=== PATIENT | male | born 1995 | race Two or more races ===

== ENCOUNTER 2024-10-11 16:28 | Emergency (ER) | payer MEDICAID, SELFPAY ==
[2024-10-11 16:36] VITALS: PULSE 101; O2SAT 96; BMI 33.2
[2024-10-11 16:39] VITALS: BP 135/77; PULSE 97; RESP 19; TEMP 37; O2SAT 100
--- NOTE | 2024-10-11 16:58 | PD.EDRME ---
Rapid Medical Screening Exam RME Arrival date/time: 10/11/24 16:28 This is a 29-year-old male who presents to the emergency department history of schizophrenia drug-induced, reports medications not working hearing demonic voices which make him very angry. Requesting to speak to crisis. I have greeted and performed a focused initial assessment of this patient. Initial appropriate labs ordered at this time. A comprehensive ED assessment and evaluation of the patient and analysis of all test and completion of medical decision making process will be conducted by additional ED provider. Chief Complaint: Psychiatric Symptoms Time Seen by Provider: 10/11/24 16:48 Vital signs: Vital Signs Temperature 98.6 F 10/11/24 16:39 Pulse Rate 97 10/11/24 16:39 Respiratory Rate 19 10/11/24 16:39 Blood Pressure 135/77 H 10/11/24 16:39 Pulse Oximetry (%) 100 10/11/24 16:39 Oxygen Delivery Method Room Air 10/11/24 16:39
[2024-10-11 18:29] LABS: Alcohol, Blood Medical < 3.0 mg/dL (0-10.0)
[2024-10-11 18:57] LABS: Amphetamine/Methamp Scrn,U Positive (Negative); Barbiturate Screen,Urine Negative (Negative); Benzodiazepines Screen,Urine Negative (Negative); Benzoylecgonine Screen, Ur Negative (Negative); Fentanyl Screen,Urine Negative (Negative); Opiate Screen,Urine Negative (Negative); THC Screen,Urine Negative (Negative)
== END 2024-10-11 20:25 | disposition left against medical advice (07) ==
PROVIDERS: Nurse Practitioner Primary Care; Emergency Provider Emergency Medicine; PCP Family Medicine
DX: F20.9 Schizophrenia, unspecified (principal); Z53.29 Procedure and treatment not carried out because of patient's decision for other reasons
CPT/HCPCS: 36415; 80307; 80320; 99281; G0480

== ENCOUNTER 2024-10-12 18:28 | Emergency (ER) | payer MEDICAID, SELFPAY ==
[2024-10-12 18:29] VITALS: PULSE 89
[2024-10-12 19:00] VITALS: BP 149/89; PULSE 89; RESP 18; TEMP 36.9; O2SAT 98
[2024-10-12 19:01] VITALS: BMI 30.6
--- NOTE | 2024-10-12 19:22 | XR_ITS ---
Examination: Ribs, right, with PA chest, 5 views Technique: Chest PA, RIBS AP, RPO, LPO, AP coned lower ribs 5 views Exam date and time: October 12, 2024 1931 hrs. Indications: Injury to the right chest today right rib pain Findings: Normal heart size No pneumothorax No pulmonary contusion No acute right rib fractures Impression: No pneumothorax pulmonary contusion or hemothorax No acute right rib fractures
--- NOTE | 2024-10-12 19:30 | PD.EDCHEST ---
ED Chest Pain RME/HPI General Chief Complaint: General Adult/Misc Complain Stated Complaint: RIGHT RIB CAGE PAIN/TALKING TO VOICES Time Seen by Provider: 10/12/24 19:22 Arrival date/time: 10/12/24 18:28 29M with history of psych presents to ED with R rib cage pain w/o known fall/trauma. Patient denies SOB, ab pain, and N/V. Related Data Home Medications ?Medication ?Instructions ?Recorded ?Confirmed buspirone 5 mg tablet 5 mg PO BID 06/30/24 06/30/24 Allergies Allergy/AdvReac Type Severity Reaction Status Date / Time No Known Allergies Allergy Verified 10/12/24 18:32 Review of Systems Review of Systems Systems Reviewed: All systems reviewed, normal except as documented Constitutional Constitutional: Reports system reviewed and no additional complaints, except as documented, Denies fever(s) and Denies headache(s) ENT Ears, Nose, Mouth, and Throat: Denies disequilibrium and Denies headache(s) Cardiovascular Cardiovascular: Reports system reviewed and no additional complaints, except as documented, Reports as per HPI, Reports chest pain (R rib) and Denies dyspnea Respiratory Respiratory: Reports system reviewed and no additional complaints, except as documented, Denies cough and Denies dyspnea Gastrointestinal Gastrointestinal: Reports system reviewed and no additional complaints, except as documented, Denies abdominal pain, Denies nausea and Denies vomiting Neurologic Neurologic: Reports system reviewed and no additional complaints, except as documented, Denies confusion, Denies disequilibrium and Denies headache(s) Psychiatric Psychiatric: Denies confusion Course Quality Measures none Orders Category Date Time Status XR ribs RT min 3V w CXR1V Stat Exams 10/12/24 19:22 Completed Vital Signs Vital signs: Vital Signs Temperature 98.5 F 10/12/24 19:00 Pulse Rate 89 10/12/24 19:00 Respiratory Rate 18 10/12/24 19:00 Blood Pressure 149/89 H 10/12/24 19:00 Pulse Oximetry (%) 98 10/12/24 19:00 Oxygen Delivery Method Room Air 10/12/24 19:00 O2 at 98% on RA and WNLs Chest Pain MDM Narrative MDM Narrative:: 29M with history of psych presents to ED with R rib cage pain w/o known fall/trauma. Patient denies SOB, ab pain, and N/V. Physical exam reveals mild R rib cage tenderness. No ab tenderness. Clear lungs. Patient is afebrile, calm, and talking to himself and listening to his voices. However, patient is redirectable and can communicate and understand conversation. XR normal. Likely MSK in nature. Patient states it does feel sore. Patient data External records reviewed:: [facility] previous records Clinical information provided by:: patient Social determinants that could affect healthcare access:: mental health Patient has the following chronic illnesses:: psych How is presenting disease/condition affected by chronic disease/condition?: exacerbated by Evaluation data The following diagnostics were reviewed and interpreted by me:: radiology exam(s) Lab and/or radiology exams considered but not ordered:: ordered Interpretation Summary: above Medications / Prescriptions Medications or Prescriptions considered but not ordered:: not ordered Medication administrations:: n/a Consultations Consultation(s) initiated? (list below): No Diagnosis Chest Pain Differential Diagnosis: fracture of rib, pneumothorax, stable angina, unstable angina pectoris, atypical chest pain, st elevation myocardial infarction, costochondritis, chest pain and biliary colic Most likely diagnosis given after review of the tests above:: rib pain Admission Indicated Admission indicated?: not indicated Admission Request Was there a request for admission?: No Disposition Plan Disposition Plan: Discharge Discharge Attestation Discharge Attestation: The patient and all family members were given an opportunity to ask questions and understood the discharge instructions. Discharge instructions specifically effects, indications for sooner follow up or return to the emergency department, and the expected course of current diagnosis. Patient condition: Stable Discharge Plan Plan Patient Disposition: HOME (Self Care) Disposition Comment: Stable Prescriptions/Referrals Prescriptions/Med Rec: No Action buspirone 5 mg tablet 5 mg PO BID Patient Comments: TAKE 1 TABLET BY MOUTH TWICE A DAY Referrals: No Primary/Family,Physician [Primary Care Provider] - In 1 week Problem List Clinical Impression: Rib pain Patient/Caregiver Discharge Instructions Additional Instructions: Please follow-up with PCP within 24-48 hours and return immediately if symptoms worsen. If problem persists, recommend outpatient PT and/or MRI follow-up. In the meantime, rest, use ice/heat, and/or compression. Print Language: Spanish Stand Alone Forms: Patient Portal Info Letter ROSA/SOHEILA Supervising Physician MARIA EUGENIA Supervising Physician: Dr. Palacios
== END 2024-10-12 20:15 | disposition home or self-care (01) ==
PROVIDERS: Emergency Provider Emergency Medicine
CPT/HCPCS: 71101; 99283

== ENCOUNTER 2024-10-24 15:18 | Emergency (ER) | payer MEDICAID, SELFPAY ==
[2024-10-24 15:35] VITALS: BP 143/85; PULSE 100; RESP 19; TEMP 36.7; O2SAT 99; BMI 29.2
--- NOTE | 2024-10-24 15:42 | PD.EDSKIN ---
ED Skin Abcess FB-RME/HPI General Chief complaint: Skin/Abscess/Foreign Body Stated complaint: Abscess to buttocks X 1 year Time Seen by Provider: 10/24/24 15:21 Arrival date/time: 10/24/24 15:18 29-year-old male with schizophrenia and homelessness presents to the emerged department for complaints of left buttock pain patient also reports scalp infection patient report symptoms ongoing for more than 1 year Limitations: no limitations Related Data Home Medications ?Medication ?Instructions ?Recorded ?Confirmed buspirone 5 mg tablet 5 mg PO BID 06/30/24 06/30/24 Previous Rx's ?Medication ?Instructions ?Recorded ibuprofen 800 mg tablet 800 mg PO TID PRN pain #30 tabs 10/24/24 sulfamethoxazole 800 1 tab PO BID 14 days #28 tabs 10/24/24 mg-trimethoprim 160 mg tablet (Bactrim DS) Allergies Allergy/AdvReac Type Severity Reaction Status Date / Time No Known Allergies Allergy Verified 10/12/24 18:32 Review of Systems Review of Systems Systems Reviewed: All systems reviewed, normal except as documented Constitutional Constitutional: Reports system reviewed and no additional complaints, except as documented, Denies fever(s) and Denies headache(s) Eyes Eyes: Reports system reviewed and no additional complaints, except as documented and Denies blurry vision ENT Ears, Nose, Mouth, and Throat: Reports system reviewed and no additional complaints, except as documented, Denies headache(s), Denies nasal congestion and Denies nasal discharge Cardiovascular Cardiovascular: Reports system reviewed and no additional complaints, except as documented, Denies chest pain and Denies dyspnea Respiratory Respiratory: Reports system reviewed and no additional complaints, except as documented, Denies chest congestion, Denies cough and Denies dyspnea Gastrointestinal Gastrointestinal: Reports system reviewed and no additional complaints, except as documented and Denies abdominal pain Integumentary/Breasts Skin/Breast: Reports system reviewed and no additional complaints, except as documented and Denies rash Neurologic Neurologic: Reports system reviewed and no additional complaints, except as documented, Reports as per HPI and Denies headache(s) Past Medical History Past Medical History CARDIAC: Negative Congestive Heart Failure RESPIRATORY: Negative Chronic Obstructive Pulmonary Disease (COPD) GASTROINTESTINAL: Positive Gall Bladder Disease GENITOURINARY: Negative Renal Disease ENDOCRINE: Negative Diabetes Mellitus Type 1 or Diabetes Mellitus Type 2 Social History SMOKING STATUS: Current every day smoker SUBSTANCE USE: methamphetamine ED Exam General Limitations: Present no limitations General appearance: Present alert and in no apparent distress Head Head exam: Present atraumatic, normocephalic and normal inspection Eye Eye exam: Present normal appearance, PERRL and EOMI; Absent conjunctival injection ENT ENT exam: Present normal exam, normal oropharynx and mucous membranes moist Neck Neck exam: Present normal inspection, full ROM and trachea midline Chest Chest inspection: Present normal inspection and symmetric chest wall rise Respiratory Respiratory exam: Present normal lung sounds bilaterally; Absent respiratory distress Cardiovascular Cardiovascular exam: Present regular rate, normal rhythm and normal heart sounds Abdominal Exam Abdominal exam: Present soft and normal bowel sounds Extremities Exam Extremities exam: Present normal inspection and full ROM Back Exam Back exam: Present normal inspection and full ROM Neurological Exam Neurological exam: Present alert, oriented X3 and CN II-XII intact Psychiatric Psychiatric exam: Present normal affect and normal mood Skin Skin exam: Present warm, dry and other (Scalp infection) Course Quality Measures none Orders Category Date Time Status Clindamycin Vial [Cleocin vial] Med 10/24/24 15:42 Discontinued 600 mg IM X1 ONE Vital Signs Vital signs: Vital Signs Temperature 98.0 F 10/24/24 15:35 Pulse Rate 100 10/24/24 15:35 Respiratory Rate 19 10/24/24 15:35 Blood Pressure 143/85 H 10/24/24 15:35 Pulse Oximetry (%) 99 10/24/24 15:35 Oxygen Delivery Method Room Air 10/24/24 15:35 O2 saturation 99% room air within normal limits Skin / Abscess / Foreign Body MDM Narrative MDM Narrative:: 29-year-old male with schizophrenia and homelessness presents to the emerged department for complaints of left buttock pain patient also reports scalp infection patient report symptoms ongoing for more than 1 year On exam patient does not appear ill or toxic in no acute distress On exam patient has what appears to be a MRSA like infection to the scalp Patient given clindamycin here discharged home with antibiotics Patient discharged home in no distress to follow-up with primary care doctor in the next 24 to 48 hours and for any worsening symptoms to return to the ER immediately Patient data External records reviewed:: [facility] previous records Clinical information provided by:: patient Social determinants that could affect healthcare access:: mental health Patient has the following chronic illnesses:: Mental health How is presenting disease/condition affected by chronic disease/condition?: exacerbated by Evaluation data The following diagnostics were reviewed and interpreted by me:: other (specify) (N/A) Lab and/or radiology exams considered but not ordered:: Consider not ordered Interpretation Summary: N/A Medications / Prescriptions Medications or Prescriptions considered but not ordered:: Given Medication administrations:: Medication Administration History Discontinued Medications Clindamycin Phosphate (Clindamycin Phos Inj 150 Mg/Ml Vial 6 Ml) 600 mg IM X1 ONE Stop: 10/24/24 15:43 Last Admin: 10/24/24 16:17 Dose: 600 mg Documented By: KF Given Consultations Consultation(s) initiated? (list below): No Diagnosis Skin/Abscess Differential Diagnosis: abscess of skin or subcutaneous tissue, urticaria and cellulitis Most likely diagnosis given after review of the tests above:: Skin infection Admission Indicated Admission indicated?: not indicated Admission Request Was there a request for admission?: No Disposition Plan Disposition Plan: Discharge Discharge Attestation Discharge Attestation: The patient and all family members were given an opportunity to ask questions and understood the discharge instructions. Discharge instructions specifically effects, indications for sooner follow up or return to the emergency department, and the expected course of current diagnosis. Patient condition: Stable Discharge Plan Plan Patient Disposition: HOME (Self Care) Disposition Comment: Stable Prescriptions/Referrals Prescriptions/Med Rec: New ibuprofen 800 mg tablet 800 mg PO TID PRN (Reason: pain) Qty: 30 0RF sulfamethoxazole-trimethoprim [Bactrim DS] 800-160 mg tablet 1 tab PO BID 14 Days Qty: 28 0RF No Action buspirone 5 mg tablet 5 mg PO BID Patient Comments: TAKE 1 TABLET BY MOUTH TWICE A DAY Problem List Clinical Impression: Infection of scalp, Homeless Patient/Caregiver Discharge Instructions Education Materials: ED Wound Check (Infection) Additional Instructions: Please follow up with your primary care doctor in the next 24-48hrs for any worsening symptoms return here immediately Print Language: Upper Sorbian Stand Alone Forms: [place] [facility] Info., Patient Portal Info Letter PA/SOHEILA Supervising Physician ROSA/SOHEILA Supervising Physician: Dr Domingo
[2024-10-24] MEDS: CLINDAMYCIN PHOS INJ 150 MG/ML VIAL 6 ML 600 MG IM (16:17)
== END 2024-10-24 16:22 | disposition home or self-care (01) ==
LOC: SERX 16:35
PROVIDERS: Emergency Provider Nurse Practitioner Primary Care
DX: L08.9 Local infection of the skin and subcutaneous tissue, unspecified (principal); Z59.00 Homelessness unspecified
CPT/HCPCS: 96372; 99283; J0736

== ENCOUNTER 2024-11-18 09:22 | Emergency (ER) | payer MEDICAID, SELFPAY ==
[2024-11-18 09:44] VITALS: PULSE 102; RESP 16; O2SAT 99
[2024-11-18 09:50] VITALS: BMI 30.4
--- NOTE | 2024-11-18 10:00 | PD.EDPSYCH ---
ED Psych RME/HPI General Chief Complaint: Psychiatric Symptoms Stated Complaint: MEDICAL CLEARANCE Time Seen by Provider: 11/18/24 09:44 Arrival date/time: 11/18/24 09:22 RME / HPI RME / HPI Narrative: 29-year-old male brought in by holding on a 5150 for gravely disabled. Patient has no complaints, he is requesting a sandwich. He denies SI/HI. PD records: Patient was picked up for public intoxication/alcohol intoxication on 11/16/2024. Related Data Home Medications ?Medication ?Instructions ?Recorded ?Confirmed buspirone 5 mg tablet 5 mg PO BID 06/30/24 06/30/24 Previous Rx's ?Medication ?Instructions ?Recorded ibuprofen 800 mg tablet 800 mg PO TID PRN pain #30 tabs 10/24/24 Allergies Allergy/AdvReac Type Severity Reaction Status Date / Time No Known Allergies Allergy Verified 10/12/24 18:32 Course Quality Measures none Orders Category Date Time Status Diet Regular Diet 11/18/24 Lunch Active Acetaminophen Stat Lab 11/18/24 10:20 Completed Alcohol, Urine Stat Lab 11/18/24 10:00 Completed CBC Stat Lab 11/18/24 10:20 Completed CMP [Comprehensive Metabolic Panel] Stat Lab 11/18/24 10:20 Completed CMP [Comprehensive Metabolic Panel] Stat Lab 11/18/24 13:53 Completed Drug Screen,Urine Stat Lab 11/18/24 10:00 Completed Salicylate Stat Lab 11/18/24 10:20 Completed Reevaluation(s) Reevaluation #1: Patient has improving liver functions, suspect heavy alcohol consumption when he was picked up for public intoxication, AST ALT ratio is consistent with alcohol/toxin. Tylenol and alcohol levels are negative. However at this point if there was heavy alcohol injection 2 days ago it would be undetectable. he is medically cleared for psychiatric assessment and final disposition. Time: 15:00 Vital Signs Vital signs: Vital Signs Temperature 98.1 F 11/18/24 10:05 Pulse Rate 90 11/18/24 10:05 Respiratory Rate 18 11/18/24 10:05 Blood Pressure 136/91 H 11/18/24 10:05 Pulse Oximetry (%) 100 11/18/24 10:05 Oxygen Delivery Method Room Air 11/18/24 10:05 SpO2 100% on room air, not Psych MDM Narrative MDM Narrative:: Mr. Lopez was picked up for public intoxication approximately 2 days ago it is now he Emergency Department for gravely disabled 5150 placement. Laboratory testing was significant for mildly elevated liver enzymes with AST ALT ratio consistent with alcohol consumption. However it has been 2 days since he was arrested and at this point alcohol or Tylenol would not be detectable. As a result liver enzymes were trended here shows downtrending where at this point no further intervention or testing such as ultrasound and radiography is indicated. Patient data External records reviewed:: [facility] previous records Clinical information provided by:: patient Social determinants that could affect healthcare access:: substance use Patient has the following chronic illnesses:: None How is presenting disease/condition affected by chronic disease/condition?: no chronic disease Evaluation data The following diagnostics were reviewed and interpreted by me:: lab results Lab and/or radiology exams considered but not ordered:: As per narrative Interpretation Summary: As per narrative Medications / Prescriptions Medications or Prescriptions considered but not ordered:: None Medication administrations:: None Consultations Consultation(s) initiated? (list below): No Diagnosis Psych Differential Diagnosis: acute psychosis, chronic schizophrenia, suicidal ideation and drug-induced psychotic disorder Most likely diagnosis given after review of the tests above:: Psychosis Admission Indicated Admission indicated?: not indicated Explain why admission is indicated or not indicated:: Signed out to oncoming provider, Dr. Ramey, pending crisis team assessment and final disposition Admission Request Was there a request for admission?: No Disposition Plan Disposition Plan: other (specify) (Signed out to oncoming provider in stable condition) Discharge Plan Prescriptions/Referrals Prescriptions/Med Rec: No Action buspirone 5 mg tablet 5 mg PO BID Patient Comments: TAKE 1 TABLET BY MOUTH TWICE A DAY ibuprofen 800 mg tablet 800 mg PO TID PRN (Reason: pain) Qty: 30 0RF Referrals: No Primary/Family,Physician [Primary Care Provider] - In 1 week Problem List Clinical Impression: Acute psychosis Patient/Caregiver Discharge Instructions Education Materials: ED Psychosis Print Language: Portuguese
[2024-11-18 10:05] VITALS: BP 136/91; PULSE 90; RESP 18; TEMP 36.7; O2SAT 100
--- NOTE | 2024-11-18 10:06 | PC.NURSE ---
Assume care for this 29 year old male who was BIB EMS for the care home and was placed on a 5150 hold for danger to self and gravely disable. Pt in room, talking to self using word salad, that man is opening the light. Pt is unkept and disheveled, Pt is a GCS of 15 A&O X 4. Pt denied any SI/HI. 1 on 1 sitter in placed.
[2024-11-18 10:34] LABS: Basophils # (Auto) 0.1 Thou/mm3 (0.0-0.2); Basophils % (Auto) 1 % (0-2.5); Eosinophils % (Auto) 0 % (0-10); Hematocrit 39.7 % (41.0-53.0); Immature Granulocytes % (Auto) 0 % (0-0); Immature Granulocytes Auto 0.04 Thou/mm3 (0.00-0.00); Lymphocytes # (Auto) 2.2 Thou/mm3 (1.0-4.8); Lymphocytes % (Auto) 24 % (10-50); Mean Corpuscular HGB Conc 35.3 g/dl (31.0-37.0); Mean Corpuscular Hemoglobin 28.1 pg (25.0-35.0); Mean Corpuscular Volume 80 fL (80-100); Monocytes % (Auto) 11 % (0-12); Neutrophils # (Auto) 5.9 Thou/mm3 (1.8-7.7); Neutrophils % (Auto) 64 % (37-80); Nucleated Red Blood Cell % 0 /100 WBC (0); Platelet Count 254 Thou/mm3 (140-440); RDW Standard Deviation 36.6 fL (35.1-43.9); Red Blood Count 4.98 Miln/mm3 (4.50-5.90); White Blood Count 9.3 Thou/mm3 (3.8-10.6)
[2024-11-18 10:48] LABS: Alcohol, Urine Negative (Negative); Amphetamine/Methamp Scrn,U Positive (Negative); Barbiturate Screen,Urine Negative (Negative); Benzodiazepines Screen,Urine Negative (Negative); Benzoylecgonine Screen, Ur Negative (Negative); Fentanyl Screen,Urine Negative (Negative); Opiate Screen,Urine Negative (Negative); THC Screen,Urine Negative (Negative)
[2024-11-18 11:01] LABS: Acetaminophen < 2.0 mcg/mL (10.0-20.0); Alanine Aminotransferase 61 U/L (10-49); Albumin, Serum 5.1 gm/dL (3.5-5.0); Albumin/Globulin Ratio 1.5 (1.2-2.2); Alkaline Phosphatase 119 U/L (46-116); Anion Gap 7 (7-16); Aspartate Amino Transferase 146 U/L (0-34); BUN/Creatinine Ratio 22 Ratio (12-20); Bilirubin,Total 2.3 mg/dL (0.3-1.2); Blood Urea Nitrogen 28 mg/dL (9-23); Calcium 9.9 mg/dL (8.3-10.6); Calcium (Corrected) 9.9 mg/dL (8.5-10.1); Carbon Dioxide 27.4 mMol/L (20.0-31.0); Chloride 100 mMol/L (98-107); Creatinine (Component) 1.3 mg/dL (0.6-1.3); Estimated Creatinine Clearance 116.6 mL/min (>60); Globulin 3.3 gm/dL (2.3-3.5); Glucose 99 mg/dL (74-106); Osmolality,Calculated 273 (275-295); Potassium 3.9 mMol/L (3.4-5.1); Salicylate < 3.0 mg/dL; Sodium 134 mMol/L (136-145); Total Protein 8.4 gm/dL (5.7-8.2); eGFR > 60 See Note
[2024-11-18 12:00] VITALS: BP 122/79; PULSE 97; RESP 18; TEMP 36.8; O2SAT 97
--- NOTE | 2024-11-18 13:01 | PC.CC ---
Addendum entered by [employer] 11/18/24 16:37: Clinical packet completed. PCS and face sheet uploaded to [employer] [id number]-ASW spoke with [facility], Transport ETA set for 1830. Addendum entered by [employer] 11/18/24 16:12: [id number]-ASW spoke with Merly from [facility]. Pt accepted by Dr. Espinoza to [facility]. [phone] for report. Addendum entered by [employer] 11/18/24 15:45: ASW informed pt has been medically cleared at this time. Clinical packet has been uploaded to [employer] and faxed to the following [facility] facilities for placement: Jorge Alicia [facility] Keesha Joseph Located [facility] At this time pt is pending placement in LPS facility. Original Note: Pt Ector Lopez is a 29 yr old male to ED on 5150 hold from clinician at [facility] for GD. From hold pt unable to participate in viable safety plan. At this time pt is pending medical clearance. ED attending is further working pt up. ASW will remain available for further orders.
[2024-11-18 14:00] VITALS: BP 123/81; PULSE 102; RESP 19; TEMP 36.8; O2SAT 98
[2024-11-18 14:31] LABS: Alanine Aminotransferase 52 U/L (10-49); Albumin, Serum 4.3 gm/dL (3.5-5.0); Albumin/Globulin Ratio 1.4 (1.2-2.2); Alkaline Phosphatase 110 U/L (46-116); Anion Gap 6 (7-16); Aspartate Amino Transferase 117 U/L (0-34); BUN/Creatinine Ratio 25 Ratio (12-20); Bilirubin,Total 1.6 mg/dL (0.3-1.2); Blood Urea Nitrogen 27 mg/dL (9-23); Calcium 9.7 mg/dL (8.3-10.6); Calcium (Corrected) 9.7 mg/dL (8.5-10.1); Chloride 101 mMol/L (98-107); Creatinine (Component) 1.1 mg/dL (0.6-1.3); Estimated Creatinine Clearance 137.8 mL/min (>60); Glucose 108 mg/dL (74-106); Osmolality,Calculated 281 (275-295); Potassium 3.3 mMol/L (3.4-5.1); Sodium 138 mMol/L (136-145); Total Protein 7.3 gm/dL (5.7-8.2); eGFR > 60 See Note
--- NOTE | 2024-11-18 16:00 | EDNOTE_ITS ---
Emergency Room Addendum Addendum Narrative: Addendum to my current note at 1630 today patient has been accepted to [facility]. Patient was transported to [facility] in stable condition. Patient is not signed off to oncoming provider.
[2024-11-18 16:26] VITALS: BP 125/82; PULSE 100; RESP 17; TEMP 36.8; O2SAT 97
--- NOTE | 2024-11-18 17:30 | PC.NURSE ---
I called Nick Thomas and gave report Cyndie FISHER
[2024-11-18 18:10] VITALS: BP 123/78; PULSE 98; RESP 19; TEMP 36.8; O2SAT 100
== END 2024-11-18 18:57 ==
LOC: SERX 10:37
PROVIDERS: Emergency Provider Emergency Medicine
DX: Z00.8 Encounter for other general examination (principal); F23 Brief psychotic disorder; Z75.1 Person awaiting admission to adequate facility elsewhere
CPT/HCPCS: 36415; 80053; 80307; 80320; 80329; 85025; 96127; 99285; G0480

== ENCOUNTER 2025-08-08 04:45 | Emergency (ER) | payer MEDICAID, SELFPAY ==
[2025-08-08 04:46] VITALS: BMI 25.3
[2025-08-08 04:58] VITALS: BP 133/83; PULSE 99; RESP 18; TEMP 36.6; O2SAT 98
--- NOTE | 2025-08-08 05:04 | PC.NURSE ---
PT APPEARS TO BE UNDER THE INFLUENCE OF SOMETHING. PT ADMITS TO CURRENTLY USEING METHANPHETAMINE.
--- NOTE | 2025-08-08 05:28 | EDNOTE_ITS ---
ED Anxiety RME/HPI General Chief Complaint: General Adult/Misc Complain Stated Complaint: PENIS PAIN Time Seen by Provider: 08/08/25 05:25 Arrival date/time: 08/08/25 04:45 29M with history of psych/drug presents to ED with weird line, on penis. Patient also wants some meds for gastritis. He has no symptoms right now. Limitations: no limitations Related Data Home Medications ?Medication ?Instructions ?Recorded ?Confirmed buspirone 5 mg tablet 5 mg PO BID 06/30/24 4 Previous Rx's ?Medication ?Instructions ?Recorded ibuprofen 800 mg tablet 800 mg PO TID PRN pain #30 t abs 10/24/24 famotidine-Ca carb-mag hydrox 10 1 tab PO BID PRN yadira gestion #60 08/08/25 mg-800 mg-165 mg chewable tablet tabs (Acid Drone Operator Complete (famotidine)) Allergies Allergy/AdvReac Type Severity Reaction Status Date / Time No Known Allergies Allergy Verified 08/08/25 04:51 Review of Systems Review of Systems Systems Reviewed: All systems reviewed, normal except as documented Past Medical History Past Medical History CARDIAC: Negative Congestive Heart Failure RESPIRATORY: Negative Chronic Obstructive Pulmonary Disease (COPD) GASTROINTESTINAL: Positive Gall Bladder Disease GENITOURINARY: Negative Renal Disease ENDOCRINE: Negative Diabetes Mellitus Type 1 or Diabetes Mellitus Type 2 PSYCHO/SOCIAL: Positive Psychiatric Problems and Schizophrenia Social History SMOKING STATUS: Current every day smoker SUBSTANCE USE: methamphetamine ED Exam General Limitations: Present no limitations General appearance: Present alert and in no apparent distress Head Head exam: Present atraumatic Neck Neck exam: Present normal inspection, full ROM and trachea midline Chest Chest inspection: Present normal inspection and symmetric chest wall rise exam: Present normal inspection Skin Skin exam: Present warm, dry, intact and normal color Course Quality Measures none Vital Signs Vital signs: Vital Signs Temperature 97.8 F 08/08/25 04:58 Pulse Rate 99 08/08/25 04:58 Respiratory Rate 18 08/08/25 04:58 Blood Pressure 133/83 H 08/08/25 04:58 Pulse Oximetry (%) 98 08/08/25 04:58 Oxygen Delivery Method Room Air 08/08/25 04:58 Anxiety MDM Narrative MDM Narrative: 29M with history of psych/drug presents to ED with weird line, on penis. Patient also wants some meds for gastritis. He has no symptoms right now. Physical exam with primary education professor Sherrie WEST reveals normal genital exam. Patient is afebrile, calm, and alert. The line he is talking about is a normal part of the scrotum. Salon Stylist given. Will Rx meds given patient states he has no money. Patient data External records reviewed:: [facility] previous records Clinical information provided by:: patient Social determinants that could affect healthcare access:: mental health Patient has the following chronic illnesses:: psych How is presenting disease/condition affected by chronic disease/condition?: exacerbated by Evaluation data The following diagnostics were reviewed and interpreted by me:: other (specify) (none) Lab and/or radiology exams considered but not ordered:: not ordered Interpretation Summary: n/a Medications / Prescriptions Medications or Prescriptions considered but not ordered:: not ordered Medication administrations:: n/a Consultations Consultation(s) initiated? (list below): No Diagnosis Differential diagnosis anxiety: hyperventilation, panic disorder, acute anxiety and other (gastritis, normal genital exam) Most likely diagnosis given after review of the tests above:: gastritis, normal genital exam Admission Indicated Admission indicated?: not indicated Admission Request Was there a request for admission?: No Disposition Plan Disposition Plan: Discharge Discharge Attestation Discharge Attestation: The patient and all family members were given an opportunity to ask questions and understood the discharge instructions. Discharge instructions specifically effects, indications for sooner follow up or return to the emergency department, and the expected course of current diagnosis. Patient condition: Stable Discharge Plan Plan Patient Disposition: HOME (Self Care) Discharge Disposition comment: Stable Prescriptions/Referrals Prescriptions/Med Rec: New Acid Drone Operator Complete (famot) 10-800-165 mg tablet,chewable 1 tab PO BID PRN (Reason: indigestion) Qty: 60 0RF No Action buspirone 5 mg tablet 5 mg PO BID Patient Comments: TAKE 1 TABLET BY MOUTH TWICE A DAY ibuprofen 800 mg tablet 800 mg PO TID PRN (Reason: pain) Qty: 30 0RF Problem List Clinical Impression: Gastritis, Normal genital exam Patient/Caregiver Discharge Instructions Additional Instructions: Please follow-up with PCP within 24-48 hours and return immediately if symptoms worsen. Print Language: Syriac Stand Alone Forms: Patient Portal Info Letter ROSA/SOHEILA Supervising Physician ROSA/SOHEILA Supervising Physician: Dr. Quiroz
== END 2025-08-08 05:31 | disposition home or self-care (01) ==
LOC: SERX 05:28
PROVIDERS: Emergency Provider Emergency Medicine
DX: K29.70 Gastritis, unspecified, without bleeding (principal)
CPT/HCPCS: 99281

== ENCOUNTER 2025-08-28 18:54 | Emergency (ER) | payer MEDICAID, SELFPAY ==
[2025-08-28 18:57] VITALS: BP 137/88; PULSE 95; RESP 17; TEMP 36.9; O2SAT 99
[2025-08-28 19:17] VITALS: PULSE 98; RESP 14; O2SAT 99; BMI 30.1
--- NOTE | 2025-08-28 19:26 | EDNOTE_ITS ---
ED Headache RME/HPI General Chief Complaint: Headache Stated Complaint: HEADACHE Time Seen by Provider: 08/28/25 19:22 Arrival date/time: 08/28/25 18:54 RME / HPI RME / HPI Narrative: Dr. De Leon?s Main ED Evaluation: 29yo male presents by EMS, reportedly s/p MCA approx. 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 and released, now with reported headache of unknown onset. Described as pressure-like sensation. Bystander notified EMS for evaluation. Blood pressure was noted to be elevated at 180/115. Patient acknowledges history of HTN, but has been off his medications for an extended period of time. No vomiting or focal weakness. No seizure activity. PMH includes DM, HTN. PSH noncontributory. Reports tobacco use, denies alcohol and illicit drug abuse. NKA. Related Data Home Medications ?Medication ?Instructions ?Recorded ?Confirmed buspirone 5 mg tablet 5 mg PO BID 06/30/24 4 Previous Rx's ?Medication ?Instructions ?Recorded ibuprofen 800 mg tablet 800 mg PO TID PRN pain #30 t abs 10/24/24 famotidine-Ca carb-mag hydrox 10 1 tab PO BID PRN yadira gestion #60 08/08/25 mg-800 mg-165 mg chewable tablet tabs (Acid Instrumentation Manager Complete (famotidine)) Allergies Allergy/AdvReac Type Severity Reaction Status Date / Time No Known Allergies Allergy Verified 08/08/25 04:51 Review of Systems Review of Systems Systems Reviewed: All systems reviewed, normal except as documented Past Medical History Past Medical History CARDIAC: Negative Congestive Heart Failure RESPIRATORY: Negative Chronic Obstructive Pulmonary Disease (COPD) GASTROINTESTINAL: Positive Gall Bladder Disease GENITOURINARY: Negative Renal Disease ENDOCRINE: Negative Diabetes Mellitus Type 1 or Diabetes Mellitus Type 2 PSYCHO/SOCIAL: Positive Psychiatric Problems and Schizophrenia Social History SMOKING STATUS: Current every day smoker SUBSTANCE USE: methamphetamine ED Exam Narrative Physical exam: GENERAL APPEARANCE: alert and oriented x 2/3 with assist, well-developed, well- nourished, paranoid with increased psychomotor agitation, complains of headache, no acute distress VITALS: All vitals were reviewed and the pulse ox is 99% on room air, which is normal according to my interpretation. HEENT: Normocephalic, atraumatic; pupils equal, round, reactive to light; EOMI; mucous membranes pink, moist; oropharynx clear NECK: Supple LUNGS: CTABL; no wheezes, no rales, no rhonchi HEART: Mildly tachycardic, regular rhythm; normal S1, S2; no murmurs ABDOMEN: non distended; normal BS; soft, no tenderness, no guarding, no rebound; no masses, no organomegaly, no hernia BACK: no CVA tenderness EXTREMITIES: atraumatic; no edema NEUROLOGIC: awake; alert and oriented x2/3 with assist; cranial nerves II-XII grossly intact; no focal sensory or motor deficits PSYCHIATRIC: paranoid affect, pressured speech, occasionally tangential, no SI or HI, no active hallucinations, but looseness of associations SKIN: warm, dry, normal color; no rashes Course Quality Measures none Orders Category Date Time Status Bedside Blood Glucose NOW Care 08/28/25 19:33 Completed Supervisor Telephone Information NOW Care 08/28/25 19:33 Completed Continuous Pulse Oximetry NOW Care 08/28/25 19:[address] head/brain wo con Stat Exams 08/28/25 19:35 Completed Alcohol, Blood Medical Stat Lab 08/28/25 20:43 Completed Ammonia Stat Lab 08/28/25 20:43 Completed CBC Stat Lab 08/28/25 20:43 Completed Comprehensive Metabolic Panel Stat Lab 08/28/25 20:43 Completed Midazolam Inj [Versed Inj] Med 08/28/25 19:35 Discontinued 2 mg IVP X1 ONE Sodium Chloride 0.9% 1000 ml [Ns] 1,000 ml Med 08/28/25 19:33 Discontinued IV 1,000 mls/hr Oxygen Delivery NOW RT 08/28/25 19:34 Completed Vital Signs Vital signs: Vital Signs Temperature 98.4 F 08/28/25 18:57 Pulse Rate 95 08/28/25 18:57 Respiratory Rate 17 08/28/25 18:57 Blood Pressure 137/88 H 08/28/25 18:57 Pulse Oximetry (%) 99 08/28/25 18:57 Oxygen Delivery Method Room Air 08/28/25 18:57 Headache MDM Narrative MDM Narrative:: Scribe Attestation: 08/28/25 - Evelina Euceda am scribing for and in the presence of Dr. De Leon. 29yo male presents by EMS, reportedly s/p MCA approx. 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 and released, now with reported headache of unknown onset. Described as pressure-like sensation. Please see PE findings. Labs remarkable for normal WBC count, chemistries unremarkable. Patient underwent CT head, which was unremarkable. Patient however abruptly eloped after the CT head study. Dx: suspected substance abuse, history of head trauma Patient data External records reviewed:: [facility] previous records (Per chart review, patient was seen here on 08/08/25 for gastritis.) and EMS form Clinical information provided by:: patient Social determinants that could affect healthcare access:: mental health Patient has the following chronic illnesses:: schizophrenia How is presenting disease/condition affected by chronic disease/condition?: uneffected by Evaluation data The following diagnostics were reviewed and interpreted by me:: lab results and radiology exam(s) Lab and/or radiology exams considered but not ordered:: none Interpretation Summary: [facility] Report Signed Patient: RASHAAD BAILEY Record#: [id number] Birthdate: 1995 Age/Sex: 29 / M Location: [facility] Attending Dr: Ordering Physician: Solomon Sanon DO Date of Service: 08/28/25 Procedure(s): CT head/brain wo [facility] Accession Number(s): [id number] cc: Solomon Sanon DO; Emmanuel Romero MD; NO PRIMARY/FAMILY,PHYSICIAN~ Examination: CT brain head without contrast. 2-D sagittal coronal reconstructions Date and time of exam: August 28, 2025, 2026 hours INDICATIONS: Injury to the head today, head pain CTDI: vol (mGy): 55.3 DLP: (mGycm): 1192 Technique: Multiple CT axial sections of the brain have been obtained, 5 mm slice thickness. Contrast has not been administered. 2-D sagittal, coronal reconstructions have been obtained Low dose protocols were performed. One or more of the following dose reduction techniques were used; automated exposure control, adjustment of the mA and/or KV according to patient size, use of iterative reconstruction technique. Findings: No significant ventricular enlargement. Intra-axial or extra-axial hemorrhage density is not seen. No mass effect or midline shift Basal cisterns are not remarkable. Fourth ventricle is midline. Cranial vault intact. Impression: Negative for acute hemorrhage, mass effect or midline shift Dictated By: Emmanuel Romero MD Signed By: <Electronically signed by Emmanuel Romero MD in [place]> 08/28/252044 Medications / Prescriptions Medications or Prescriptions considered but not ordered:: none Medication administrations:: Medication Administration History Discontinued Medications Sodium Chloride (Ns) 1,000 mls @ 1,000 mls/hr IV .Q1H ONE Stop: 08/28/25 20:32 Midazolam HCl (Midazolam Inj 1 Mg/Ml Vial 2 Ml) 2 mg IVP X1 ONE Stop: 08/28/25 19:36 Not given due to the patient eloping. Consultations Consultation(s) initiated? (list below): No Diagnosis Differential diagnosis headache: migraine, tension headache, headache and other (dehydration, electrolyte abnormality) Most likely diagnosis given after review of the tests above:: suspected substance abuse, history of head trauma Admission Indicated Admission indicated?: not indicated Admission Request Was there a request for admission?: No Disposition Plan Disposition Plan: other (specify) (Elopement) Discharge Plan Plan Patient Disposition: Elopement Prescriptions/Referrals Prescriptions/Med Rec: No Action buspirone 5 mg tablet 5 mg PO BID Patient Comments: TAKE 1 TABLET BY MOUTH TWICE A DAY Acid Instrumentation Manager Complete (famot) 10-800-165 mg tablet,chewable 1 tab PO BID PRN (Reason: indigestion) Qty: 60 0RF ibuprofen 800 mg tablet 800 mg PO TID PRN (Reason: pain) Qty: 30 0RF Referrals: No Primary/Family,Physician [Primary Care Provider] - In 1 week Problem List Clinical Impression: Post-traumatic headache Patient/Caregiver Discharge Instructions Print Language: Sammarinese
--- NOTE | 2025-08-28 19:35 | XR_ITS ---
Examination: CT brain head without contrast. 2-D sagittal coronal reconstructions Date and time of exam: August 28, 2025, 2026 hours INDICATIONS: Injury to the head today, head pain CTDI: vol (mGy): 55.3 DLP: (mGycm): 1192 Technique: Multiple CT axial sections of the brain have been obtained, 5 mm slice thickness. Contrast has not been administered. 2-D sagittal, coronal reconstructions have been obtained Low dose protocols were performed. One or more of the following dose reduction techniques were used; automated exposure control, adjustment of the mA and/or KV according to patient size, use of iterative reconstruction technique. Findings: No significant ventricular enlargement. Intra-axial or extra-axial hemorrhage density is not seen. No mass effect or midline shift Basal cisterns are not remarkable. Fourth ventricle is midline. Cranial vault intact. Impression: Negative for acute hemorrhage, mass effect or midline shift
[2025-08-28 20:50] LABS: Basophils # (Auto) 0.0 Thou/mm3 (0.0-0.2); Basophils % (Auto) 0 % (0-2.5); Eosinophils # (Auto) 0.1 Thou/mm3 (0.0-0.5); Eosinophils % (Auto) 1 % (0-10); Hematocrit 37.4 % (41.0-53.0); Hemoglobin 13.1 g/dL (13.5-16.0); Immature Granulocytes Auto 0.01 Thou/mm3 (0.00-0.00); Lymphocytes # (Auto) 2.2 Thou/mm3 (1.0-4.8); Lymphocytes % (Auto) 30 % (10-50); Mean Corpuscular HGB Conc 35.0 g/dl (31.0-37.0); Mean Corpuscular Hemoglobin 28.6 pg (25.0-35.0); Mean Corpuscular Volume 82 fL (80-100); Monocytes # (Auto) 0.5 Thou/mm3 (0.0-0.8); Monocytes % (Auto) 7 % (0-12); Neutrophils # (Auto) 4.5 Thou/mm3 (1.8-7.7); Neutrophils % (Auto) 62 % (37-80); Nucleated Red Blood Cell # 0.00 Thou/mm3 (0.00-0.00); Nucleated Red Blood Cell % 0 /100 WBC (0); Platelet Count 263 Thou/mm3 (140-440); RDW Standard Deviation 37.5 fL (35.1-43.9); Red Blood Count 4.58 Miln/mm3 (4.50-5.90); White Blood Count 7.2 Thou/mm3 (3.8-10.6)
[2025-08-28 21:09] LABS: Ammonia 21 uMol/L (11-32)
[2025-08-28 21:14] LABS: Alanine Aminotransferase 17 U/L (10-49); Albumin, Serum 4.3 gm/dL (3.5-5.0); Albumin/Globulin Ratio 1.5 (1.2-2.2); Alcohol, Blood Medical < 3.0 mg/dL (0-10.0); Alkaline Phosphatase 132 U/L (46-116); Anion Gap 8 (7-16); Aspartate Amino Transferase 26 U/L (0-34); BUN/Creatinine Ratio 13 Ratio (12-20); Bilirubin,Total 0.5 mg/dL (0.3-1.2); Blood Urea Nitrogen 10 mg/dL (9-23); Calcium 9.0 mg/dL (8.3-10.6); Calcium (Corrected) 9.0 mg/dL (8.5-10.1); Carbon Dioxide 27.9 mMol/L (20.0-31.0); Chloride 106 mMol/L (98-107); Creatinine (Component) 0.8 mg/dL (0.6-1.3); Estimated Creatinine Clearance 159.3 mL/min (>60); Globulin 2.8 gm/dL (2.3-3.5); Glucose 84 mg/dL (74-106); Osmolality,Calculated 281 (275-295); Potassium 3.7 mMol/L (3.4-5.1); Sodium 142 mMol/L (136-145); Total Protein 7.1 gm/dL (5.7-8.2); eGFR > 60 See Note
--- NOTE | 2025-08-28 23:34 | PC.NURSE ---
SEEN BY SECURITY LEAVING
== END 2025-08-28 23:35 | disposition left against medical advice (07) ==
LOC: SERX 20:01
PROVIDERS: Emergency Provider Emergency Medicine
DX: G44.309 Post-traumatic headache, unspecified, not intractable (principal); Z53.29 Procedure and treatment not carried out because of patient's decision for other reasons
CPT/HCPCS: 36415; 70450; 80053; 80307; 80320; 81001; 82140; 85025; 99284; G0480